=== PATIENT | male | born 1975 | race Two or more races ===

== ENCOUNTER 2020-12-31 14:13 | Day surgery (SDC) | payer OTHER ==
[~2020-12-31] VITALS: Ht 165.1 cm; Wt 83.6 kg
[2020-12-31] MEDS ORDERED: SODIUM CHLORIDE FLUSH 10ML SYR IVF ONE (14:30)
[2020-12-31] MEDS ORDERED: SODIUM CHLORIDE 0.9% 1,000ML IVBOLUS ONE (14:30)
[2020-12-31] MEDS ORDERED: ONDANSETRON 2MG/ML, 2ML IVPush ONE (14:30)
[2020-12-31 14:42] LABS: BASOPHILS % (AUTO) 0 % (0-1); EOSINOPHILS % (AUTO) 1 % (1-7); LYMPHOCYTES % (AUTO) 11 % (22-44); MEAN CORPUSCULAR HEMOGLOBIN 32.9 pg (27.5-34.5); MEAN CORPUSCULAR HGB CONC 35.2 g/dL (33.2-36.2); MEAN PLATELET VOLUME 6.1 fL (7.4-10.4); MONOCYTES % (AUTO) 4 % (2-9); NEUTROPHILS % (AUTO) 84 % (42-75); PLATELET COUNT 348 x10^3/uL (130-400); RED BLOOD COUNT 4.96 x10^6/uL (4.38-5.82); RED CELL DISTRIBUTION WIDTH 13.4 % (9.4-14.8)
[2020-12-31] MEDS ORDERED: ONDANSETRON 2MG/ML, 2ML ONE ×2 (14:43→19:24)
[2020-12-31] MEDS ORDERED: MORPHINE SULFATE 4 MG/ML, 1ML ONE ×2 (14:43→18:17)
[2020-12-31 14:44] LABS: MD NO
[2020-12-31] MEDS: MORPHINE SULFATE 4 MG/ML, 1ML IVPush PRN ×2 (14:46→18:19)
--- NOTE | 2020-12-31 14:50 | NUR ---
ASSUMED CARE OF PATIENT. PATIENT REPORTS CENTER ABD PAIN 07/26. PT DENIES VOMITING. VS STABLE. TRASHMAN ON. SINUS AV NOTED. EKG DONE. CALL LIGHT IN PLACE. WILL CONTINUE TO MONITOR
[2020-12-31 14:51] LABS: ALANINE AMINOTRANSFERASE 30 U/L (12-78); ALBUMIN 3.4 g/dL (3.4-5.0); ANION GAP 7 mmol/L (5-15); CALCIUM 8.5 mg/dL (8.5-10.1); CHLORIDE 109 mmol/L (98-107); CREATININE 1.15 mg/dL (0.7-1.3)
[2020-12-31 14:56] LABS: ALKALINE PHOSPHATASE 83 U/L (45-117); BILIRUBIN,TOTAL 0.5 mg/dL (0.2-1.0); TOTAL PROTEIN 6.6 g/dL (6.4-8.2); TROPONIN I 0.046 ng/mL (0.000-0.045)
--- NOTE | 2020-12-31 15:12 | NUR ---
US IN ROOM
--- NOTE | 2020-12-31 16:01 | NUR ---
PT WENT TO CT
[2020-12-31] MEDS ORDERED: DEXAMETHASONE 4 MG/ML, 1ML ONE (16:11)
[2020-12-31] MEDS ORDERED: KETOROLAC 30 MG/1 ML ONE (16:11)
[2020-12-31] MEDS ORDERED: OMNIPAQUE 350 MG/ML, 100ML BOTTLE ONE (16:23)
[2020-12-31] MEDS ORDERED: CEFOTETAN PMX 1GM/50ML 50 ML IVPB ONE (17:00)
--- NOTE | 2020-12-31 17:18 | NUR ---
NO BLOOD CULTURES PER MABLE TAYLOR
--- NOTE | 2020-12-31 17:25 | NUR ---
pt used bathroom. vs stable. call light in place. will continue to monitor.
[2020-12-31] MEDS ORDERED: SODIUM CHLORIDE 0.9% 1,000 ML IV ONE (18:00)
[2020-12-31] MEDS ORDERED: SODIUM CHLORIDE FLUSH 10ML SYR IVF PRN (18:00)
[2020-12-31 18:15] VITALS: BP 145/81
--- NOTE | 2020-12-31 18:26 | NUR ---
TASK RN ASSISTING [facility] WITH MEDICATION ADMIN. PT MEDICATED NOTED PER MD ORDER FOR 07/26 ABD PAIN AND PT REQUEST. DENIES NEED TO USE RESTROOM. VSS. CALL LIGHT IN REACH. FALL PRECUATIONS IN PLACE. AWAITING OR FOR SURGERY. REPORT AND CARE BACK TO [facility]
[2020-12-31] MEDS ORDERED: EPINEPHRINE 1 MG/ML, 1ML ONE (18:28)
[2020-12-31] MEDS ORDERED: BUPIVACAINE/PF 0.5% ONE (18:28)
[2020-12-31] MEDS ORDERED: FENTANYL PF 100 MCG/2ML ONE (18:33)
[2020-12-31] MEDS ORDERED: MIDAZOLAM 1 MG/ML, 2ML ONE (18:33)
[2020-12-31] MEDS ORDERED: ROCURONIUM 10MG/ML,5ML ONE (19:24)
[2020-12-31] MEDS ORDERED: PROPOFOL 10 MG/ML, 20ML ONE (19:24)
[2020-12-31] MEDS ORDERED: CEFAZOLIN 1,000 MG ONE (19:24)
[2020-12-31] MEDS ORDERED: SUGAMMADEX 200 MG/2 ML IVPush ONE (19:24)
[2020-12-31] MEDS ORDERED: OXYcodone 5 MG/5 ML ORAL.SOL UDC PO PRN (19:30)
[2020-12-31] MEDS ORDERED: PROMETHAZINE 25 MG/ML, 1ML IVPush PRN (19:30)
[2020-12-31] MEDS ORDERED: MEPERIDINE/PF 25MG/0.5ML IVPush PRN (19:30)
[2020-12-31] MEDS ORDERED: HYDROmorphone 1 MG/ML, 1ML INJ IVPush PRN (19:30)
[2020-12-31] MEDS ORDERED: FENTANYL PF 100 MCG/2ML IV PRN (19:30)
[2020-12-31] MEDS ORDERED: METHOCARBAMOL 1,000 MG in DEXTROSE 5% 100 ML IV PRN (19:30)
[2020-12-31] MEDS ORDERED: hydrALAzine 20 MG/ML, 1ML IV PRN (19:30)
[2020-12-31] MEDS ORDERED: LABETALOL 5MG/ML, 20ML IV PRN (19:30)
[2020-12-31] MEDS ORDERED: ACETAMINOPHEN 325 MG TABLET PO PRN (19:30)
[2020-12-31] MEDS ORDERED: ALBUTEROL SULFATE 2.5 MG/3 ML NPPB PRN (19:30)
[2020-12-31] MEDS ORDERED: TRAM50TA2 PO (21:03)
== END 2020-12-31 22:20 | disposition home or self-care (01) ==
LOC: OUT 17:42 → ED 17:42 → EDIP 17:48 → UNDOADMIN 17:48 → ED 18:01 → OUT 22:20 → ED 22:20
PROVIDERS: ATTEND Emergency Medicine
DX: K35.80 Unspecified acute appendicitis (principal); Z20.822 Contact with and (suspected) exposure to COVID-19; Z79.891 Long term (current) use of opiate analgesic; Z79.899 Other long term (current) drug therapy
CPT/HCPCS: 36415; 44970; 74177; 76700; 80053; 83690; 84484; 85025; 87635; 88304; 93005; 96361; 96365; 96375; 96376; 99285; J0171; J0690; J1100; J1885; J2250; J2270; J2405; J2704; J3010; J7030; Q9967